=== PATIENT | male | born 1960 | race Caucasian/White ===

== ENCOUNTER 2018-09-21 10:40 | Emergency (ER) | payer MEDICAID, OTHER ==
[~2018-09-21] VITALS: Ht 182.9 cm; Wt 82.6 kg
--- NOTE | 2018-09-21 10:44 | NUR ---
PT BIB [id number] FOR HYPOGLYCEMIA. PER EMS, BS WAS 42 ON SCENE AND D50 WAS ADMIN. POST D50 ADMIN, BS 211. PT ARRIVED W/ 18G IV ACCESS IN LAC. PT REPORTS HX OF SCHIZOPHRENIA BUT DENIES CURRENT MEDICATION REGIMEN. PT DENIES PAIN, C/P, SOB, N/V/D, DIZZINESS, HEADACHE. ACCUCHECK 139 AT THIS TIME.
--- NOTE | 2018-09-21 11:29 | NUR ---
BUFFY CEJA AT BEDSIDE FOR MSE.
--- NOTE | 2018-09-21 11:55 | NUR ---
PT TAKEN TO RADIOLOGY FOR CT SCAN.
[2018-09-21 12:02] LABS: BASOPHILS # (AUTO) 0.1 K/uL (0.0-8.0); BASOPHILS % (AUTO) 0.7 % (0.0-2.0); EOSINOPHILS # (AUTO) 0.2 K/uL (0.0-0.7); EOSINOPHILS % (AUTO) 2.3 % (0.0-7.0); HEMATOCRIT 45.4 % (36.7-47.1); HEMOGLOBIN 15.7 g/dL (12.5-16.3); LYMPHOCYTES # (AUTO) 1.9 K/uL (20.0-40.0); MEAN CORPUSCULAR HEMOGLOBIN 31.1 uug (23.8-33.4); MEAN CORPUSCULAR HGB CONC 35 g/dL (32.5-36.3); MEAN CORPUSCULAR VOLUME 90.1 fL (73.0-96.2); MONOCYTES # (AUTO) 0.4 K/uL (2.0-10.0); MONOCYTES % (AUTO) 5.8 % (0.0-11.0); NEUTROPHILS # (AUTO) 4.8 K/uL (1.8-8.9); NEUTROPHILS % (AUTO) 65.2 % (38.5-71.5); PLATELET COUNT (AUTO) 188 K/uL (152-348); RED BLOOD CELL COUNT(AUTO) 5.04 MIL/uL (4.06-5.63); WHITE BLOOD COUNT (AUTO) 7.4 K/uL (3.6-10.2)
[2018-09-21 12:05] LABS: *BILIRUBIN,URIN NEGATIVE (NEGATIVE); *BLOOD, URINE Trace-intact (NEGATIVE); *CLARITY,URINE CLEAR (CLEAR); *COLOR,URINE YELLOW (YELLOW); *KETONES,URINE 2+ (NEGATIVE); *PROTEIN,URINE NEGATIVE (NEGATIVE); *UROBILINOGEN,URINE 0.2 E.U./dl (NORMAL); LEUKOCYTE ESTERASE ,URINE NEGATIVE (NEGATIVE); NITRITE, URINE NEGATIVE (NEGATIVE); PH,URINE 5.5 (5.0-8.0); UGLUCOSE 2+ (NEGATIVE)
[2018-09-21 12:08] LABS: BACTERIA,URINE FEW /HPF (NONE SEEN); CARBON DIOXIDE 28 mmol/L (21-32); CHLORIDE 101 mmol/L (98-107); GLUCOSE 120 mg/dL (74-106); POTASSIUM 3.7 mmol/L (3.5-5.1); RBC,URINE 0-3 /HPF (0-3); SQUAMOUS EPITHELIAL CELL,UR FEW /HPF (NONE SEEN); UREA NITROGEN, BLOOD 14 mg/dL (7-18); WBC,URINE 0-3 /HPF (0-3)
[2018-09-21 12:13] LABS: *AMPHETAMINE, URINE NEGATIVE (NEGATIVE); *BARBITURATE, URINE NEGATIVE (NEGATIVE); *CANNABINOID, URINE NEGATIVE (NEGATIVE); *COCCAINE, URINE NEGATIVE (NEGATIVE); *OPIATE, URINE NEGATIVE (NEGATIVE); *PHENCYCLIDINE SCREEN,URINE NEGATIVE (NEGATIVE)
[2018-09-21 12:14] LABS: ACETAMINOPHEN < 2.0 ug/mL (10-30); ALANINE AMINOTRANSFERASE 34 U/L (16-63); ALKALINE PHOSPHATASE 65 U/L (50-136); ASPARTATE AMINOTRANSFERASE 20 U/L (15-37); BILIRUBIN,DIRECT 0.2 mg/dL (0.0-0.2); TOTAL PROTEIN, SERUM 8.2 g/dL (6.4-8.2)
[2018-09-21 12:15] LABS: ETHANOL < 3 MG/DL (0-0)
[2018-09-21 12:28] LABS: THYROID STIMULATING HORMONE 1.536 mIU/mL (0.358-3.740)
--- NOTE | 2018-09-21 13:11 | NUR ---
PAGED DORIAN ARANDA, CRISIS CALL OR CONTACT CENTRE OPERATOR, FOR PSYCH CONSULT. ETA 30 MIN.
--- NOTE | 2018-09-21 13:24 | NUR ---
LUNCH PROVIDED TO PT.
--- NOTE | 2018-09-21 13:50 | NUR ---
DORIAN ARANDA, CRISIS MARKET RESEARCH INTERN, AT PT BEDSIDE.
--- NOTE | 2018-09-21 14:48 | NUR ---
PT CLEARED BY DORIAN ARANDA PSYCHICATRICALLY. CONTACTED FOR APS REPORT DISCUSSED W/ BUFFY CEJA.
--- NOTE | 2018-09-21 14:56 | NUR ---
This SW informed by ED RN Cb that patient was evaluated by critical care nurse practitioner Jackson Arce and that it was decided that an APS report was needed, which is why Cb was contacting this SW. This SW consulted with SS Director Paula Rubalcava and it was agreed that Jackson Arce would be completing the APS report since he had already assessed the patient. Paula Rubalcava stated that she would instruct Jackson accordingly. This SW notified ED RN Cb. No further interventions required by this SW.
--- NOTE | 2018-09-21 15:00 | NUR ---
ELLA W/ MAHENDRA, APPLICATION TECHNICIAN, AND SHE STATES THAT DORIAN SHANNONN WILL BE SUBMITTING THE APS REPORT. PT IS CLEARED FOR D/C. BUFFY CEJA NOTIFIED.
--- NOTE | 2018-09-21 15:07 | NUR ---
Patient discharged to home in stable conditon. Written and verbal after care instructions given. Patient verbalizes understanding of instructions. ALL BELONGINGS W/ PT. PT SELF-AMBULATED W/O DIFFICULTY. 18G IV ACCESS IN L AC REMOVED - INNER CANNULA INTACT. PT IS ABLE TO STATES HIS HOME ADDRESS AND STATES HE WILL TAKE THE BUS HOME. METHOD OF D/C DISCUSSED W/ ER .
[2018-09-21 15:09] VITALS: BP 160/80
== END 2018-09-21 15:09 | disposition home or self-care (01) ==
LOC: ER 10:40
DX: R42 Dizziness and giddiness (principal); F20.9 Schizophrenia, unspecified
CPT/HCPCS: 36415; 70450; 71045; 80048; 80076; 80307; 81001; 82140; 83605; 84443; 84484; 85025; 85730; 87040 ×2; 87086; 93005; 99284; G0480 ×2; G0481; 70030-TC; A4663

== ENCOUNTER 2020-07-02 13:56 | Emergency (ER) | payer OTHER ==
[~2020-07-02] VITALS: Ht 182.9 cm; Wt 77.1 kg
--- NOTE | 2020-07-02 14:50 | NUR ---
PT REFUSED BLOOD DRAW. NOTIFIED.
== END 2020-07-02 14:57 | disposition left against medical advice (07) ==
LOC: ER 13:56
DX: R06.02 Shortness of breath (principal); R07.9 Chest pain, unspecified; F41.9 Anxiety disorder, unspecified; F20.9 Schizophrenia, unspecified
CPT/HCPCS: 71045; 93005; A4663